=== PATIENT | male | born 1950 | race Caucasian/White ===

== ENCOUNTER 2017-06-25 00:07 | Emergency (ER) | payer MEDICARE, BC ==
[2017-06-25] MEDS ORDERED: IPRATROPIUM/ALBUTEROL (0.5MG/3MG) NEB INH ONE (00:17)
[2017-06-25] MEDS ORDERED: METHYLPREDNISOLONE PF 125MG/VIAL IVP ONE (00:17)
[2017-06-25 00:33] LABS: BASO % 0.3 % (0-6); EOS % 0.8 % (0-6); GRAN % 78.5 % (47-80); HEMATOCRIT 35.2 % (42.0-52.0); HEMOGLOBIN 10.7 gm/dl (14.0-18.0); LYMPH % 8.2 % (16-45); MEAN CELL VOLUME 86.1 fl (81-97); MEAN CORPUSCULAR HGB CONC 30.4 g/dl (32-36); MEAN PLATELET VOLUME 9.3 fl (7.4-10.4); MONO % 12.2 % (0-9); PLATELET COUNT 241 K/uL (130-400); RED BLOOD COUNT 4.09 M/uL (4.40-5.70); RED CELL DISTRIBUTION WIDTH 14.7 % (11.5-14.5)
[2017-06-25 00:35] LABS: MEAN CORPUSCULAR HEMOGLOBIN 26.1 pg (27-33)
[2017-06-25 00:59] LABS: BILIRUBIN,TOTAL 0.2 mg/dL (0.2-1.0); CREATININE 2.2 mg/dL (0.7-1.2)
[2017-06-25 01:00] LABS: TOTAL PROTEIN 6.6 g/dL (6.6-8.7)
[2017-06-25 01:04] LABS: ALBUMIN 2.7 g/dL (4.0-5.0)
--- NOTE | 2017-06-25 01:04 | Emergency Department Record ---
History of Present Illness - General Chief Complaint: Shortness of breath Stated Complaint: MELISSA Time Seen by Provider: 06/25/17 00:16 Source: Patient, EMS Mode of Arrival: EMS Limitations: No limitations - History of Present Illness Initial Comments: pt brought in by ems for increasing sob. he is on 3 ltrs of 02 normally. ems found his sats to be in the 70s when they got there to bring him in. pt has had chills and sweats. he is due for dialysis today MD Complaint: Shortness of breath Onset/Timin -: Days(s) Consistency: Getting worse Improves With: Oxygen, Upright position Known History Of: COPD, Diabetes Associated Symptoms: Cough, Nausea/vomiting Treatments Prior to Arrival: None - Related Data Home Oxygen Therapy: Yes Home Oxygen Amount: 3 Liters Home Medications Medication Instructions Recorded Confirmed Last Taken Alprazolam [Xanax] 0.25 mg PO DAILY PRN 06/25/17 06/25/17 Unknown Amlodipine Besylate [Norvasc] 10 mg PO DAILY 06/25/17 06/25/17 Unknown Aspirin 325 mg PO DAILY 06/25/17 06/25/17 Unknown Atorvastatin Calcium [Lipitor] 10 mg PO ASDIR 06/25/17 06/25/17 Unknown Carvedilol [Coreg] 12.5 mg PO BID 06/25/17 06/25/17 Unknown Clonazepam [Klonopin] 1 mg PO QHS 06/25/17 06/25/17 Unknown Darbepoetin [place] in [place]ys[place] 1 ml IJ WEEKLY 06/25/17 06/25/17 Unknown [Aranesp] Digoxin [Lanoxin] 125 mcg PO DAILY 06/25/17 06/25/17 Unknown Fluoxetine HCl [Prozac] 20 mg PO DAILY 06/25/17 06/25/17 Unknown Glucagon,Human Recombinant 1 mg IJ ASDIR 06/25/17 06/25/17 Unknown [Glucagon Emergency Kit] Hydralazine HCl 100 mg PO TID 06/25/17 06/25/17 Unknown Hydrocodone/Acetaminophen [[place] 1 tab PO Q6H PRN 06/25/17 06/25/17 Unknown 5mg/325mg] Insulin Aspart [Novolog] 5 unit SQ TID 06/25/17 06/25/17 Unknown Insulin Detemir [Levemir Flextouch] 8 unit SQ QHS 06/25/17 06/25/17 Unknown Levetiracetam [Keppra] 500 mg PO BID 06/25/17 06/25/17 Unknown Lisinopril [Zestril] 40 mg PO DAILY 06/25/17 06/25/17 Unknown Meclizine HCl [Antivert] 12.5 mg PO Q8H PRN 06/25/17 06/25/17 Unknown Metolazone [Zaroxolyn] 5 mg PO ASDIR 06/25/17 06/25/17 Unknown Ondansetron [Zofran Odt] 4 mg PO Q8H 06/25/17 06/25/17 Unknown Trazodone HCl 100 mg PO DAILY 06/25/17 06/25/17 Unknown Allergies Allergy/AdvReac Type Severity Reaction Status Date / Time No Known Drug Allergies Allergy Verified 06/25/17 00:11 Travel Screening - Travel/Exposure Within Last 30 Days Have you traveled within the last 30 days?: No - Travel Symptoms Symptom Screening: None Review of Systems Reviewed: No additional complaints except as noted below Constitutional: Reports: As per HPI. Denies: Chills, Fever, Malaise, Night sweats, Weakness, Weight change Eyes: Reports: As per HPI. Denies: Eye discharge, Eye pain, Photophobia, Vision change ENT: Reports: As per HPI. Denies: Congestion, Dental pain, Ear pain, Epistaxis , Hearing loss, Throat pain Respiratory: Reports: As per HPI, Cough, Dyspnea. Denies: Hemoptysis, Stridor, Wheezes Cardiovascular: Reports: As per HPI. Denies: Arrhythmia, Chest pain, Dyspnea on exertion, Edema, Murmurs, Orthopnea, Palpitations, Paroxysmal nocturnal dyspnea, Rheumatic Fever, Syncope Endocrine: Reports: As per HPI, Fatigue. Denies: Heat or cold intolerance, Polydipsia, Polyuria Gastrointestinal: Reports: As per HPI. Denies: Abdominal pain, Constipation, Diarrhea, Hematemesis, Hematochezia, Melena, Nausea, Vomiting Genitourinary: Reports: As per HPI. Denies: Dysuria, Frequency, Hematuria, Incontinence, Retention, Testicular pain, Testicular mass, Urgency Musculoskeletal: Reports: As per HPI. Denies: Arthralgia, Back pain, Gout, Joint swelling, Myalgia, Neck pain Skin: Reports: As per HPI. Denies: Bruising, Change in color, Change in hair/ nails, Lesions, Pruritus, Rash Neurological: Reports: As per HPI. Denies: Abnormal gait, Confusion, Headache, Numbness, Paresthesias, Seizure, Tingling, Tremors, Vertigo, Weakness Psychiatric: Reports: As per HPI. Denies: Anxiety, Auditory hallucinations, Depression, Homicidal thoughts, Suicidal thoughts, Visual hallucinations Hematological/Lymphatic: Reports: As per HPI, Anemia, Easy bruising. Denies: Blood Clots, Easy bleeding, Swollen glands Past Medical History - SOCIAL HISTORY Smoking Status: Former smoker - RESPIRATORY Hx Respiratory Disorders: Yes Comment:: home O2 -3L - CARDIOVASCULAR Hx Cardio Disorders: Yes Hx Heart Attack: Yes Hx Hypertension: Yes Hx Irregular Heartbeat: Yes Comment:: high cholesterol - NEURO Hx Neuro Disorders: Yes Hx Dizziness: Yes - GI Hx GI Disorders: No - Hx Genitourinary Disorders: Yes Hx Dialysis: Yes (T, Th, S) - ENDOCRINE Hx Endocrine Disorders: Yes Hx Diabetes: Yes - MUSCULOSKELETAL Hx Musculoskeletal Disorders: Yes Hx Arthritis: Yes - PSYCH Hx Psych Problems: No - HEMATOLOGY/ONCOLOGY Hx Hematology/Oncology Disorders: No Family Medical History Any Significant Family History?: Yes Hx Diabetes: Father Physical Exam - General General Appearance: Alert, Oriented x3, Cooperative, Mild distress - Head Head exam: Normal inspection - Eye Eye exam: Normal appearance, PERRL, EOMI Pupils: Normal accommodation - ENT ENT exam: Normal exam, Mucous membranes moist, Normal external ear exam, Normal orophraynx Ear exam: Normal external inspection. negative: External canal tenderness Nasal Exam: Normal inspection. negative: Discharge, Sinus tenderness Mouth exam: Normal external inspection, Tongue normal Teeth exam: Normal inspection. negative: Dental caries Throat exam: Normal inspection. negative: Tonsillar erythema, Tonsillar exudate - Neck Neck exam: Normal inspection, Full ROM. negative: Tenderness - Respiratory Respiratory exam: Normal lung sounds bilaterally. negative: Respiratory distress - Cardiovascular Cardiovascular Exam: Regular rate, Normal rhythm, Normal heart sounds, Systolic murmur - GI/Abdominal GI/Abdominal exam: Soft, Normal bowel sounds. negative: Tenderness - Rectal Rectal exam: Deferred - exam: Deferred - Extremities Extremities exam: Normal inspection, Full ROM, Normal capillary refill, Other ( fistula in r arm). negative: Tenderness - Back Back exam: Reports: Normal inspection, Full ROM. 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 ] Pulse Rate [ 68 Pulse Ox Probe] Respiratory 28 H 20 30 H Rate Blood Pressure 160/67 155/67 [Left Arm] Pulse Ox 90 L 94 L 92 L Medical Decision Making - Lab Data Result diagrams: 06/25/17 00:27 06/25/17 00:27 Lab Results 06/25/17 Range/Units 00:27 WBC 10.0 (4.2-12.2) K/uL RBC 4.09 L (4.40-5.70) M/uL Hgb 10.7 L (14.0-18.0) gm/dl Hct 35.2 L (42.0-52.0) % MCV 86.1 (81-97) fl MCH 26.1 L (27-33) pg MCHC 30.4 L (32-36) g/dl RDW 14.7 H (11.5-14.5) % Plt Count 241 (130-400) K/uL MPV 9.3 (7.4-10.4) fl Gran % 78.5 (47-80) % Lymphocytes % 8.2 L (16-45) % Monocytes % 12.2 H (0-9) % Eosinophils % 0.8 (0-6) % Basophils % 0.3 (0-6) % Disposition Disposition: Transfer Clinical Impression: Hypoxia Pneumonia Qualifiers: Pneumonia type: due to unspecified organism Laterality: bilateral Lung location : lower lobe of lung Qualified Code(s): J18.9 - Pneumonia, unspecified organism CHF (congestive heart failure) Qualifiers: Congestive heart failure type: unspecified congestive heart failure type Congestive heart failure chronicity: acute Qualified Code(s): I50.9 - Heart failure, unspecified Renal failure Qualifiers: Renal failure chronicity: chronic Chronic kidney disease stage: unspecified stage Qualified Code(s): N18.9 - Chronic kidney disease, unspecified Disposition: Acute Care Hospital Transfer Transfer To: [facility] Reason For Transfer: needs dialysis Accepting Physician: dr lima Time Discussed w/Accepting Physician: 02:44 Forms: Patient Portal Access Quality - Quality Measures Quality Measures: N/A - Blood Pressure Screening Does Patient Have Any of the Following: No, Active Dx of HTN Blood Pressure Classification: Pre-Hypertensive BP Reading Systolic Measurement: 157 Diastolic Measurement: 81 Screening for High Blood Pressure: Patient Exclusion, Hx of HTN [[id number]]
[2017-06-25 01:05] LABS: ALB/GLOB RATIO 0.7 (1.1-1.8); DIGOXIN 0.9 ng/mL (0.8-2.0)
[2017-06-25] MEDS ORDERED: ACETAMINOPHEN 500 MG TABLET PO ONE (01:18)
[2017-06-25 01:32] LABS: CKMB 2.8 ng/mL (<6.73)
[2017-06-25] MEDS ORDERED: CEFTRIAXONE SODIUM 1 GM in 0.9 % SODIUM CHLORIDE 100ML 100 ML IVPB ONE (01:57)
[2017-06-25] MEDS ORDERED: FUROSEMIDE IV 40MG/4ML VIAL IVP ONE (02:04)
[2017-06-25] MEDS ORDERED: ALBUTEROL SULFATE (0.083%) 2.5 MG/3 ML NEB INH ONE (02:20)
[2017-06-25 03:06] LABS: INFLUENZA A NEGATIVE (NEGATIVE); INFLUENZA B NEGATIVE (NEGATIVE)
[2017-06-25] MEDS ORDERED: LORAZEPAM 2 MG/ML VIAL IV ONE (03:17)
[2017-06-25] MEDS ORDERED: FUROSEMIDE IV 40MG/4ML VIAL IVP SCH (10:00)
--- NOTE | 2017-06-26 17:49 | RADIOLOGY REPORT ---
EXAM: CHEST 1 VIEW HISTORY: COUGH AND SHORTNESS OF BREATH. TECHNIQUE: A single mobile upright view of the chest is obtained. COMPARISON: Two-view chest radiographic examination dated 06/25/2017 at 0100. FINDINGS: A dual-lumen right internal jugular central venous catheter remains in place with its tip in the upper right atrium/cavoatrial junction. Post median sternotomy changes redemonstrated with a prosthetic heart valve and left atrial appendage clip in place. The inferior cardiac margins are again not optimally visualized. Cardiomegaly is again suspected and there is mild pulmonary venous hypertension. Minor bilateral perihilar edema is not excluded. Bibasilar airspace disease, left greater than right, redemonstrated consistent with atelectasis or infiltrate. Moderate-sized left basilar pleural effusion. In this position, there does appear to be mild right lateral costophrenic angle blunting not visualized on the prior examination consistent with small pleural effusion. No pneumothorax. IMPRESSION: 1. CARDIOMEGALY WITH PULMONARY VENOUS HYPERTENSION. POSSIBLE MILD BILATERAL PERIHILAR EDEMA. THIS MAY HAVE SLIGHTLY IMPROVED IN THE INTERVAL. 2. BIBASILAR AIRSPACE DISEASE PERSISTS, UNCHANGED, CONSISTENT WITH ATELECTASIS , INFILTRATE, OR ATYPICAL EDEMA. MODERATE-SIZED LEFT BASILAR PLEURAL EFFUSION. SMALL RIGHT BASILAR PLEURAL EFFUSION. JOB NUMBER: [id number] [facility]
--- NOTE | 2017-06-26 18:00 | RADIOLOGY REPORT ---
EXAM: CHEST 2 VIEWS HISTORY: SHORTNESS OF BREATH AND COUGH. TECHNIQUE: Upright PA and lateral views of the chest. COMPARISON: None. FINDINGS: Post median sternotomy changes are identified with prosthetic heart valve in place as well as a left atrial appendage clip. A dual-lumen right internal jugular central venous catheter is in place with its tip in the upper right atrium. Evaluation of heart size is somewhat limited, as the inferior heart borders are somewhat obscured. The heart is likely enlarged and there is mild pulmonary venous hypertension. Mild perihilar interstitial edema is possible. There is bibasilar airspace disease consistent with atelectasis, infiltrate, or atypical edema. This is most pronounced on the left. A small to moderate-sized left basilar pleural effusion is present. No pneumothorax. There are degenerative changes of the visualized spine and shoulder girdles. IMPRESSION: 1. DUAL-LUMEN RIGHT INTERNAL JUGULAR CENTRAL VENOUS CATHETER IN PLACE. 2. POST MEDIAN STERNOTOMY CHANGES. 3. PROBABLE CARDIOMEGALY WITH MILD PULMONARY VENOUS HYPERTENSION. PROBABLE MILD BILATERAL PERIHILAR EDEMA AND THERE IS A LEFT BASILAR PLEURAL EFFUSION. THESE FINDINGS ARE SUSPICIOUS FOR FLUID OVERLOAD. 4. BIBASILAR AIRSPACE DISEASE, LEFT GREATER THAN RIGHT, CONSISTENT WITH ATELECTASIS, INFILTRATE, OR ATYPICAL EDEMA. [facility]: [id number] [facility]
== END 2017-06-25 04:54 | disposition short-term general hospital (02) ==
LOC: ER 00:07
DX: J18.9 Pneumonia, unspecified organism (principal); R09.02 Hypoxemia; E11.22 Type 2 diabetes mellitus with diabetic chronic kidney disease; N18.6 End stage renal disease; R11.2 Nausea with vomiting, unspecified; J44.9 Chronic obstructive pulmonary disease, unspecified; I13.2 Hypertensive heart and chronic kidney disease with heart failure and with stage 5 chronic kidney disease, or end stage renal disease; I25.2 Old myocardial infarction; Z79.4 Long term (current) use of insulin; Z99.81 Dependence on supplemental oxygen; Z87.891 Personal history of nicotine dependence
CPT/HCPCS: 99285 ×2; 96365; 96375; 82550; 85025; 82553; 80053; 87400; 84484; 80162; 83880; 71046; 94640 ×2; 93005; 93010; J2060; 71045; J1940; J2930; J7613